=== PATIENT | female | born 1980 ===

== ENCOUNTER 2021-12-25 17:34 | Emergency (ER) | payer SELFPAY ==
[2021-12-25] MEDS ORDERED: LORazepam 1 MG Tab PO ONE ×2 (17:47→20:31)
[2021-12-25 19:08] LABS: ACETAMINOPHEN <2.0 ug/mL; BLOOD UREA NITROGEN,BUN 17 mg/dL (7.0-18.0); CARBON DIOXIDE,CO2 29.8 mmol/L (21.0-32.0); CHLORIDE,CL 104 mmol/L (98-107); GLUCOSE RANDOM 102 mg/dL (74-106); POTASSIUM,K 3.7 mmol/L (3.5-5.1); SODIUM,NA 140 mmol/L (136-145)
[2021-12-25] MEDS ORDERED: Ibuprofen 800 MG Tab PO ONE (20:31)
== END 2021-12-25 23:00 ==
LOC: MW.ED 17:34
DX: F29 Unspecified psychosis not due to a substance or known physiological condition (principal); F31.9 Bipolar disorder, unspecified; Z20.822 Contact with and (suspected) exposure to COVID-19
CPT/HCPCS: 36415; 80053; 80143; 80179; 80305; 80307; 81003; 84443; 84703; 85025; 87635; 93005; 99285; A9270; U0002